=== PATIENT | female | born 1995 | race Hispanic/Latino ===

== ENCOUNTER 2020-01-01 13:29 | Emergency (ER) | payer OTHER, SELFPAY ==
--- NOTE | ~2020-01-01 | CT_ITS ---
EXAMINATION: CT abdomen pelvis w con DATE: 01/01/2020 14:35 INDICATION: Right lower quadrant abdominal pain. TECHNIQUE: Computed tomography (CT) of the abdomen and pelvis was performed with 100 mL Omnipaque 350 intravenous contrast. Automated exposure control and iterative reconstruction technique were employe d. The dose-length product was 200.45 mGy-cm. COMPARISON: None. FINDINGS: The visualized portions of the lung bases are clear without pneumonia or pleural effusion. The heart size is normal. No pericardial effusion. The liver, gallbladder, spleen, pancreas, adrenal glands, and kidneys are normal. There are no dilated loops of bowel. The appendix is normal. There ar e no pathologically enlarged lymph nodes. The ovarian veins are enlarged, consistent with pelvic veno us insufficiency. There is no free intraperitoneal fluid. There is lumbar levoscoliosis. IMPRESSION: 1. Pelvic venous insufficiency. Reviewed, dictated and finalized at location A.
[2020-01-01 13:58] LABS: Basophils Percent Auto 0.8 % (0.2-1.2); Eosinophils Absolute Auto 0.2 K/mm3 (0-0.3); Hematocrit 38.1 % (37.0-47.0); Hemoglobin 12.7 g/dL (12.0-15.0); Immature Granulocyte Absolute 0.01 K/mm3 (0.00-0.031); Immature Granulocyte Percent A 0.2 % (0-0.5); Lymphocytes Absolute Auto 1.74 K/mm3 (0.9-3.2); Lymphocytes Percent Auto 35.2 % (18.3-44.2); Mean Corpuscular HGB Conc 33.3 g/dl (32-36); Mean Corpuscular Hemoglobin 29.7 pg (26-34); Mean Platelet Volume 10.6 fl (7.4-10.4); Monocytes Absolute Auto 0.5 K/mm3 (0.1-0.6); Monocytes Percent Auto 9.1 % (2.6-8.5); Neutrophils Absolute Auto 2.6 K/mm3 (1.3-6.7); Neutrophils Percent Auto 51.7 % (45.5-73.1); Platelet Count Result 224 k/mm3 (150-375); Red Blood Count 4.28 M/mm3 (4.2-5.4)
[2020-01-01] MEDS: ONDANSETRON INJ 4 MG/2 ML VIAL IV PUSH (13:58)
[2020-01-01] MEDS: FAMOTIDINE 20 MG/2 ML VIAL IV PUSH (13:58)
[2020-01-01] MEDS: SODIUM CHLORIDE 0.9% IV 1,000 ML 999 ML IV CONT (13:59)
[2020-01-01 14:02] LABS: Add Urine Microscopic? NO; Appearance Urine Clear (Clear); Bacteria Urine Trace /hpf; Bilirubin Urine Negative (Negative); Blood Urine Negative (Negative); Color Urine Yellow (Yellow); Glucose Urine UA Negative (Negative); Ketones Urine Negative (Negative); Leukocyte Esterase Ur Negative LEU/UL (Negative); Mucus Urine Heavy /lpf; Nitrate Urine Negative (Negative); Protein Urine Negative (Negative); RBC Urine 0-2 /hpf (0-2); Specific Grav Ur 1.026 (1.001-1.035); Squamous Epithelial Cell Urine Many /hpf (Few); Urobilinogen Urine Negative mg/dL (<2.0); WBC Urine 0-3 /hpf
[2020-01-01 14:05] VITALS: BP 111/72; PULSE 62; RESP 14; TEMP 36.7; O2SAT 100
[2020-01-01 14:13] LABS: Alanine Aminotransferase 7 U/L (4-35); Albumin Level 4.6 g/dL (3.5-5.1); Alkaline Phosphatase 71 U/L (38-126); Aspartate Amino Transferase 18 U/L (14-36); Bilirubin,Total 0.6 mg/dL (0.2-1.3); Blood Urea Nitrogen 14 mg/dL (7-17); Calcium 9.2 mg/dL (8.4-10.2); Carbon Dioxide 28 mmol/L (22-30); Chloride 104 mmol/L (98-107); Estimated CRCL calculation 89 ml/min; Estimated Glomerular Filt Rate > 60; Glucose 106 mg/dL (65-105); Lipase 85 U/L (23-300); Potassium 4.2 mmol/L (3.4-5.0); Sodium 138 mmol/L (137-145)
--- NOTE | 2020-01-01 14:15 | ED.ABDPAIN ---
HPI - Abdominal Pain General Chief Complaint: Abdominal Pain <Demetrius Oro PA-C - Last Filed: 01/01/20 15:43> Stated Complaint: abdominal pain RLQ <JACQUELYN Johansen Last Filed: 01/01/20 15:43> Time Seen by Provider: 01/01/20 13:34 <Demetrius Oro PA-C - Last Filed: 01/01/20 15:43> Source: patient <Demetrius Oro PA-C - Last Filed: 01/01/20 15:43> Mode of arrival: ambulatory <Demetrius Oro PA-C - Last Filed: 01/01/20 15:43> Limitations: no limitations <Demetrius Oro PA-C - Last Filed: 01/01/20 15:43> History of Present Illness HPI narrative: Patient is a 24-year-old female who presents to emergency department for evaluation of right lower quadrant abdominal pain that began over the last day patient notes aching pain originating at the periumbilical region which she woke up with which has now localized to the right lower quadrant is a moderate aching pain worse with activity and movement. Patient has decreased appetite with nausea. I similar occurrence other illness or complaints presents in no distress and has not taken anything for symptoms <Demetrius Oro PA-C - Last Filed: 01/01/20 15:43> Related Data Allergies/Adverse Reactions: Allergies Allergy/AdvReac Type Severity Reaction Status Date / Time No Known Allergies Allergy Verified 08/23/15 10:09 <Demetrius Oro PA-C - Last Filed: 01/01/20 15:43> Review of Systems Review of Systems: All systems reviewed & are unremarkable except as noted in HPI and below <Demetrius Oro PA-C - Last Filed: 01/01/20 15:43> PMFSH Social History Social History: Social History (Updated 01/01/20 @ 14:40 by Demetrius Oro PA-C) Smoking status: Never smoker Gender identity (if verbalized by the patient): Female <Demetirus Oro PA-C - Last Filed: 01/01/20 15:43> Exam Narrative: Exam Narrative: GENERAL: Well-appearing, well-nourished, and in no acute distress. HEAD: Normocephalic, atraumatic. EYES: PERRLA and EOMI. ENT: Nares clear, no rhinorrhea or epistaxis. Mucous membranes moist. CHEST: Clear to auscultation. No respiratory distress. No wheezes rales or rhonchi HEART: Regular rate and rhythm. No murmur heard. Normal peripheral pulses. ABDOMEN: Soft, generalized tenderness with worsening in the right lower quadrant with voluntary guarding, nondistended, normal active bowel sounds. EXTREMITIES: Normal range of motion. No edema. SKIN: Warm, dry, no rash. NEURO: No focal deficits. Alert and oriented x3. Cranial nerves II through XII grossly intact PSYCH: Normal mood and affect. <Demetrius Oro PA-C - Last Filed: 01/01/20 15:43> Course Course Emergency Course: Patient in the room in no distress aware of case findings treatment plan and diagnosis agreeing to follow-up as directed provided with reasons to return <Demetrius Oro PA-C - Last Filed: 01/01/20 15:43> Vital Signs Vital signs: Vital Signs Temperature 98.1 F 01/01/20 14:05 Pulse Rate 62 01/01/20 14:05 Respiratory Rate 14 01/01/20 14:05 Blood Pressure 111/72 01/01/20 14:05 Pulse Oximetry 100 01/01/20 14:05 Temperature 98.1 F 01/01/20 14:05 Pulse Rate 58 L 01/01/20 15:17 Respiratory Rate 14 01/01/20 15:17 Blood Pressure 104/63 01/01/20 15:17 Pulse Oximetry 98 01/01/20 15:17 <Demetrius Oro PA-C - Last Filed: 01/01/20 15:43> Vital Signs Temperature 98.1 F 01/01/20 14:05 Pulse Rate 62 01/01/20 14:05 Respiratory Rate 14 01/01/20 14:05 Blood Pressure 111/72 01/01/20 14:05 Pulse Oximetry 100 01/01/20 14:05 Temperature 98.1 F 01/01/20 14:05 Pulse Rate 58 L 01/01/20 15:17 Respiratory Rate 14 01/01/20 15:17 Blood Pressure 104/63 01/01/20 15:17 Pulse Oximetry 98 01/01/20 15:17 <Marisela Rivas MD - Last Filed: 01/01/20 15:44> MDM - Abdominal Pain MDM Narrative Medical decision making narrative: Patient in the room
[2020-01-01 15:17] VITALS: BP 104/63; PULSE 58; RESP 14; O2SAT 98
[2020-01-01] MEDS: KETOROLAC 30 MG/ML VIAL (*BKC) IV PUSH (15:31)
== END 2020-01-01 15:59 | disposition home or self-care (01) ==
PROVIDERS: Emergency Medicine Emergency Medical Services; Emergency Provider Emergency Medicine
DX: R10.31 Right lower quadrant pain (principal); I87.2 Venous insufficiency (chronic) (peripheral)
CPT/HCPCS: 36415; 74177; 80053; 81003; 81025; 83690; 85025; 96361; 96365; 96375; 99284; J0131; J1885; J2405; J7030; Q9967

== ENCOUNTER → 2020-03-07 15:54 | Outpatient (CLI) | payer OTHER, SELFPAY ==
--- NOTE | ~2020-03-07 | XR_ITS ---
EXAMINATION: XR chest 2V DATE: 03/07/2020 16:33 INDICATION: Chest and back pain, COVID exposure TECHNIQUE: PA and lateral views of the chest are obtained. COMPARISON: None available FINDINGS: The lungs are free of acute opacities. There is no pleural effusion or pneumothorax. The ca rdiomediastinal silhouette is normal. The visualized bones and soft tissues are unremarkable. IMPRESSION: 1. No acute cardiopulmonary abnormality. Reviewed, dictated and finalized at location A.
== END ==
PROVIDERS: PCP Emergency Medicine; Visit Provider Emergency Medicine
DX: R07.9 Chest pain, unspecified (principal); M54.9 Dorsalgia, unspecified; Z20.828 Contact with and (suspected) exposure to other viral communicable diseases
CPT/HCPCS: 71046

== ENCOUNTER 2020-05-24 12:42 | Outpatient (NON) | payer OTHER, SELFPAY ==
[2020-05-25 01:31] LABS: SARS-CoV-2 RNA PCR Negative
== END 2020-05-24 12:43 ==
LOC: ANHCOVIDDT 12:43
PROVIDERS: PCP Emergency Medicine; Visit Provider Emergency Medicine
DX: Z20.828 Contact with and (suspected) exposure to other viral communicable diseases (principal); J02.9 Acute pharyngitis, unspecified
CPT/HCPCS: 87635; C9803; U0003

== ENCOUNTER → 2020-10-04 09:09 | Outpatient (CLI) | payer OTHER, SELFPAY ==
[2020-10-04 19:28] LABS: SARS-CoV-2 RNA PCR Negative
== END ==
PROVIDERS: PCP Emergency Medicine; Visit Provider Emergency Medicine
DX: Z20.822 Contact with and (suspected) exposure to COVID-19 (principal); J02.9 Acute pharyngitis, unspecified; H92.09 Otalgia, unspecified ear
CPT/HCPCS: C9803; U0003; U0005

== ENCOUNTER 2020-10-18 08:14 | Outpatient (CLI) | payer OTHER, SELFPAY ==
--- NOTE | ~2020-10-18 | US_ITS ---
US right upper quadrant INDICATION: Epigastric pain PROCEDURE: Realtime right upper abdominal ultrasound. COMPARISON: CT dated 01/01/2020 FINDINGS: The pancreas is normal without focal mass or pancreatic ductal dilation. Liver echotexture is normal without focal mass or intrahepatic biliary dilatation. There is normal directional flow i n the portal vein. The gallbladder is normal without stones, gallbladder wall thickening or pericholecystic fluid. Comm on bile duct measures 4 mm. No sonographic Teresa's sign. IMPRESSION: 1: Normal limited abdominal ultrasound. Reviewed, dictated and finalized at location B.
== END 2020-10-18 08:15 | disposition home or self-care (01) ==
PROVIDERS: PCP Emergency Medicine; Visit Provider Emergency Medicine
DX: R10.13 Epigastric pain (principal)
CPT/HCPCS: 76705

== ENCOUNTER 2021-01-29 12:04 | Emergency (ER) | payer OTHER, SELFPAY ==
--- NOTE | ~2021-01-29 | CT_ITS ---
EXAMINATION: CT abdomen pelvis w con EXAM DATE: 01/29/2021 13:52 INDICATION: Right lower quadrant pain, UTI. TECHNIQUE: Spiral CT of the abdomen and pelvis was performed following intravenous injection of 100 m L Omnipaque 350. Axial, coronal and sagittal images of the abdomen and pelvis were reviewed. The do se-length product (DLP) for this examination was 199.33 mGy-cm. The exposure was tailored according to patient size (auto mA exposure control), and iterative reconstruction (ASIR) was used as additiona l dose reduction technique. Comparison is made to prior examination from 01/01/2020. FINDINGS: The liver, spleen, adrenal glands and pancreas are unremarkable. Gallbladder is unremarkab le. No biliary obstruction. Portal and splenic veins are patent. Kidneys enhance symmetrically. T here is no hydronephrosis. The uterus is retroverted and morphologically normal. There is evidence of recently ruptured right ovarian physiologic follicle. Dilated bilateral ovarian veins, could indic ate pelvic congestion syndrome. The bladder is unremarkable. There is no retroperitoneal or pelvic lymphadenopathy. The appendix is normal. The stomach and small bowel are unremarkable. There is expected amount of c olonic stool. No free intraperitoneal gas. The heart is normal in size. There are no pericardial or pleural effusions. The lung bases are unremarkable. The bones are unremarkable. IMPRESSION: 1. Evidence of recently ruptured right ovarian follicle. 2. Dilated gonadal veins bilaterally, could indicate pelvic congestion syndrome. 3. Normal appendix. Reviewed, dictated and finalized at location A. IMPRESSION: 1. Evidence of recently ruptured right ovarian follicle. 2. Dilated gonadal veins bilaterally, could indicate pelvic congestion syndrom e. 3. Normal appendix.
--- NOTE | ~2021-01-29 | XR_ITS ---
XR chest 2V DATE: 01/29/2021 13:08 INDICATION: Midsternal to posterior chest pain and shortness breath for one day TECHNIQUE: PA and lateral views COMPARISON: 03/07/2020 2 view chest FINDINGS: Bilateral cervical ribs. Minimal dextroscoliosis of the thoracic spine. Normal heart size. No hilar or mediastinal enlargement. No pulmonary infiltrate or consolidation, pleural effusion or pulmonary vascular congestion or pneumo thorax. IMPRESSION: No active cardiac pulmonary disease Bilateral cervical ribs Reviewed, dictated and finalized at location B.
--- NOTE | 2021-01-29 12:07 | ECG_ITS ---
Measurements Intervals [place] Rate: 96 P: 74 MD: 138 QRS: 71 QRSD: 76 T: -11 QT: 312 QTc: 396 Interpretive Statements SINUS RHYTHM POSSIBLE LEFT ATRIAL ENLARGEMENT INCOMPLETE RIGHT BUNDLE BRANCH BLOCK BORDERLINE ST-T WAVE ABNORMALITY- ANT/INF LEADS BASELINE ARTIFACT- I, III, AVL BORDERLINE ECG Electronically Signed On 01-29-2021 12:52:45 CDT by Terrell Jacobs D.O.
[2021-01-29 12:39] VITALS: BP 111/76; PULSE 102; RESP 18; TEMP 36.9; O2SAT 100
[2021-01-29 12:45] VITALS: PULSE 95; RESP 16
[2021-01-29 13:05] LABS: Basophils Absolute Auto 0.1 K/mm3 (0.0-0.1); Basophils Percent Auto 0.3 % (0.2-1.2); Hematocrit 37.5 % (37.0-47.0); Hemoglobin 12.6 g/dL (12.0-15.0); Immature Granulocyte Absolute 0.13 K/mm3 (0.00-0.031); Immature Granulocyte Percent A 0.6 % (0-0.5); Lymphocytes Absolute Auto 0.86 K/mm3 (0.9-3.2); Lymphocytes Percent Auto 4.3 % (18.3-44.2); Mean Corpuscular HGB Conc 33.6 g/dl (32-36); Mean Corpuscular Hemoglobin 30.5 pg (26-34); Mean Corpuscular Volume 90.8 fl (80-100); Mean Platelet Volume 10.5 fl (7.4-10.4); Monocytes Absolute Auto 1.1 K/mm3 (0.1-0.6); Monocytes Percent Auto 5.3 % (2.6-8.5); Neutrophils Absolute Auto 18.1 K/mm3 (1.3-6.7); Neutrophils Percent Auto 89.5 % (45.5-73.1); Platelet Count Result 197 k/mm3 (150-375); Red Blood Count 4.13 M/mm3 (4.2-5.4); Red Cell Distribution Width 12.3 % (11.5-14.5); White Blood Count 20.2 K/mm3 (4.5-10.0)
[2021-01-29 13:15] VITALS: PULSE 80
[2021-01-29 13:19] LABS: Anion Gap 7 mmol/L (8-16); Blood Urea Nitrogen 14 mg/dL (7-17); Calcium 9.2 mg/dL (8.4-10.2); Carbon Dioxide 24 mmol/L (22-30); Chloride 106 mmol/L (98-107); Estimated CRCL calculation 91 ml/min; Estimated Glomerular Filt Rate > 60; Glucose 114 mg/dL (65-105); Sodium 137 mmol/L (137-145)
[2021-01-29 13:22] LABS: Add Urine Microscopic? YES; Appearance Urine Clear (Clear); Bacteria Urine Trace /hpf; Bilirubin Urine Negative (Negative); Blood Urine Negative (Negative); Color Urine Yellow (Yellow); Glucose Urine UA Negative (Negative); Ketones Urine Trace mg/dL (Negative); Leukocyte Esterase Ur Trace LEU/UL (Negative); Mucus Urine Heavy /lpf; Nitrate Urine Negative (Negative); Protein Urine Negative (Negative); RBC Urine 0-2 /hpf (0-2); Specific Grav Ur 1.027 (1.001-1.035); Squamous Epithelial Cell Urine Few /hpf (Few); Urobilinogen Urine Negative mg/dL (<2.0); WBC Urine 0-3 /hpf
[2021-01-29 13:31] LABS: Troponin I < 0.012 ng/mL (0.000-0.034)
[2021-01-29] MEDS: FAMOTIDINE 20 MG/2 ML VIAL IV PUSH (13:42)
[2021-01-29] MEDS: SODIUM CHLORIDE 0.9% IV 1,000 ML 999 ML IV CONT (13:42)
--- NOTE | 2021-01-29 13:50 | PC.NURSE ---
chemistry, lazara added hepatic, lip 13:50
[2021-01-29 13:58] LABS: Prothrombin Time 13.3 Seconds (11.1-14.7)
[2021-01-29 14:00] LABS: Partial Thromboplastin Time 27.4 SECONDS (22.3-36.8)
--- NOTE | 2021-01-29 14:31 | PC.NURSE ---
chemistry, mono lance hepatic, deandra 14:32
--- NOTE | 2021-01-29 14:49 | ED.GENADULT ---
HPI - General Adult General Chief complaint: Chest Pain Stated complaint: CP X1D CHILLS Time Seen by Provider: 01/29/21 13:03 Source: patient and RN notes reviewed Mode of arrival: ambulatory Limitations: no limitations History of Present Illness HPI narrative: Patient is a 25-year-old female who presents to emergency department for evaluation of not feeling well notes that today she went to primary care given that she began to not feel well noting that she was having some discomfort in the abdomen with cough fever chills body aches that began acutely today she notes that her kid currently has RSV and is sick at home patient denies any vomiting diarrhea patient was seen by primary care told she had a urinary tract infection but sent over due to the discomfort she is having in her chest and the coughing patient on arrival does not appear distressed she has not taken anything for symptoms. Patient notes that she is fully vaccinated against Covid Related Data Allergies Allergy/AdvReac Type Severity Reaction Status Date / Time No Known Allergies Allergy Verified 01/29/21 13:11 Review of Systems Review of Systems: All systems reviewed & are unremarkable except as noted in HPI and below PMFSH Social History Social History Smoking status: Never smoker Gender identity (if verbalized by the patient): Female Exam Narrative: Exam Narrative: GENERAL: Well-appearing, well-nourished, and in no acute distress. HEAD: Normocephalic, atraumatic. EYES: PERRLA and EOMI. ENT: Nares clear, no rhinorrhea or epistaxis. Mucous membranes moist. Oropharynx without tonsillar hypertrophy exudate or other lesions. Bilateral TMs pearly benito nonbulging NECK: Supple. No adenopathy or masses. CHEST: Clear to auscultation. No respiratory distress. No wheezes rales or rhonchi HEART: Regular rate and rhythm. No murmur heard. Normal peripheral pulses. ABDOMEN: Soft, periumbilical abdominal pain, nondistended. EXTREMITIES: Normal range of motion. No edema. SKIN: Warm, dry, no rash. NEURO: No focal deficits. Alert and oriented x3. Cranial nerves II through XII grossly intact PSYCH: Normal mood and affect. Course Course Emergency Course: Patient in the room in no distress aware of case findings treatment plan and diagnosis agreeing to follow-up as instructed with primary care for reevaluation patient without pneumonia no urinary tract infection had CAT scan without concerning findings patient will be discharged home with acute follow-up with primary care could be related to the viral infection her son has. Vital Signs Vital signs: Vital Signs Temperature 98.5 F 01/29/21 12:39 Pulse Rate 102 H 01/29/21 12:39 Respiratory Rate 18 01/29/21 12:39 Blood Pressure 111/76 01/29/21 12:39 Pulse Oximetry 100 01/29/21 12:39 Temperature 98.5 F 01/29/21 12:39 Pulse Rate 80 01/29/21 13:15 Respiratory Rate 16 01/29/21 12:45 Blood Pressure 111/76 01/29/21 12:39 Pulse Oximetry 100 01/29/21 12:39 Medical Decision Making MDM Narrative Medical decision making narrative: Patient presented with upper respiratory symptoms likely secondary to the same illness or child has will be sent home with outpatient follow-up with primary care for reevaluation and rechecking of her leukocytosis patient felt better after evaluation and interventions in the emergency department was checked for influenza strep will have Covid swab patient at this time is afebrile nontoxic-appearing and felt appropriate for outpatient reevaluation agrees with this treatment plan Vital Signs Vital Signs: Vital Signs Temperature 98.5 F 01/29/21 12:39 Pulse Rate 102 H 01/29/21 12:39 Respiratory Rate 18 01/29/21 12:39 Blood Pressure 111/76 01/29/21 12:39 Pulse Oximetry 100 01/29/21 12:39 Temperature 98.5 F 01/29/21 12:39 Pulse Rate 80 01/29/21 13:15 Respiratory Rate 16 01/29/21 12:45 Bloo
[2021-01-29 15:06] LABS: Alanine Aminotransferase 11 U/L (4-35); Albumin Level 4.4 g/dL (3.5-5.1); Alkaline Phosphatase 60 U/L (38-126); Aspartate Amino Transferase 22 U/L (14-36); Lipase 66 U/L (23-300)
[2021-01-29 15:41] LABS: Troponin I < 0.012 ng/mL (0.000-0.034)
[2021-01-29 15:54] VITALS: BP 93/59; PULSE 84; RESP 18; O2SAT 100
[2021-01-30 16:29] LABS: SARS-CoV-2 RNA PCR Negative
== END 2021-01-29 15:56 | disposition home or self-care (01) ==
PROVIDERS: Emergency Medicine Emergency Medical Services; Emergency Provider Emergency Medicine; PCP Emergency Medicine
DX: J06.9 Acute upper respiratory infection, unspecified (principal); D72.829 Elevated white blood cell count, unspecified; R10.9 Unspecified abdominal pain; Z20.822 Contact with and (suspected) exposure to COVID-19
CPT/HCPCS: 36415; 71046; 74177; 80048; 80076; 81001; 81025; 83690; 84484; 85025; 85610; 85730; 87081; 87804; 87880; 93005; 96365; 96375; 99284; C9803; J0131; J7030; Q9967; U0003; U0005

== ENCOUNTER 2021-03-31 10:16 | Outpatient (CLI) | payer OTHER, SELFPAY | END 2021-03-31 10:17 | disposition home or self-care (01) | PROVIDERS: PCP Emergency Medicine; Visit Provider Obstetrics & Gynecology | DX: Z01.818 Encounter for other preprocedural examination (principal); N92.1 Excessive and frequent menstruation with irregular cycle | CPT/HCPCS: 36415; 86850; 86900; 86901 ==

== ENCOUNTER 2021-04-04 02:44 | Day surgery (SDC) | payer OTHER, SELFPAY ==
--- NOTE | 2021-04-02 10:00 | PM.IMHP ---
H&P: HPI History of Present Illness Date/Time: 04/02/21 10:00 26-year-old 3 para 3 admitted for laparoscopy hysteroscopy dilatation curettage. She has had pain discomfort irregular bleeding. Ultrasound showed free fluid in the pelvis with a retroverted uterus. A she has had chronic pelvic pain dyspareunia she opts for laparoscopy/hysteroscopy/dilatation and curettage. Risks and benefits reviewed Chief Complaint: Irregular bleeding and pelvic pain Review of Systems Review of Systems: All systems reviewed & are unremarkable except as noted in HPI and below PMFSH Social History Social History Smoking status: Never smoker Gender identity (if verbalized by the patient): Female Spiritual care concerns: No Meds Home Medications and Allergies Home Medications Medication Instructions Recorded Confirmed Type No Home Medications 03/28/21 03/28/21 History Allergies Allergy/AdvReac Type Severity Reaction Status Date / Time No Known Allergies Allergy Verified 03/28/21 10:26 Exam Const: General: no acute distress Eyes: General: appearance normal, both eyes and all related structures Neck: Neck: supple and no JVD Thyroid: thyroid normal Resp: Effort & Inspection: normal respiratory effort Auscultation: clear to auscultation bilaterally Cardio: Rate: regular rate Rhythm: regular rhythm GI: Inspection: non-distended GI Palp: Yes Soft to palpation, No Tenderness to palpation present (GI) and No Guarding due to palpation present (GI) Auscultation: normal bowel sounds : External Female Exam: normal external appearance Speculum Exam - Vagina: normal appearance of the vagina Speculum Exam - Cervix: normal appearance of the cervix Bimanual exam- vagina & uterus: uterine size normal and fixed Bimanual Exam- Adnexa, other: tender Skin: General skin exam: no rashes or lesions noted Extrem: General: normal to inspection and no edema Psych: Mental Status: mental status grossly normal Affect: normal affect Assessment and Plan Additional Plan Impression: Pelvic pain and the bleeding refractory to medical therapy Plan: Laparoscopy/hysteroscopy/dilatation and curettage
[2021-04-04] VITALS (9 sets, daily range): BP systolic 106–134; BP diastolic 59–90; PULSE 49–80; RESP 14–18; TEMP 36.1–36.9; O2SAT 100
--- NOTE | 2021-04-04 07:02 | WPDHPUPDATE1 ---
History and Physical Update Update Date/Time: 04/04/21 07:02 History and Physical has been reviewed, including an updated exam of the patient. There are NO changes in the patient's condition. Risks, benefits, and alternatives have been discussed and questions answered. Patient agrees to proceed with procedure.
--- NOTE | 2021-04-04 12:14 | WPDANESEPPF ---
Anes - Initial Pre Proc Eval Procedure: Operation Date: 04/04/21 13:30 Proposed Procedures p Diagnostic Laparoscopy, Hysteroscopy, Dilatation and Curettage - Varun Braga MD Date/Time: 04/04/21 12:14 Surgeon: Varun Braga MD Pre Op Diagnosis: pelvic pain, irregular bleeding Patient Data Age: 26 Gender: F Height: 1.65 m Weight: 54.5 kg Allergies Allergy/AdvReac Type Severity Reaction Status Date / Time No Known Allergies Allergy Verified 04/04/21 12:02 Home Medications Medication Instructions Recorded Confirmed Type No Home Medications 03/28/21 04/04/21 History hydrocodone-acetaminophen 1 tablet PO Q4H PRN #20 tablet 04/04/21 Rx Patient hx anesthesia problems: none Family hx anesthesia problems: none PMFSH Past Medical History Medical History (Updated 04/04/21 @ 12:16 by Dariel Vasquez MD) Abnormal uterine bleeding Anxiety Depression Social History Social History Smoking status: Never smoker Living arrangements: with family Gender identity (if verbalized by the patient): Female Spiritual care concerns: No Anes - Eval Final PreProcedure Day of Procedure 04/04/21 12:14 Patient weight: normal Heart: regular rate and rhythm Lungs: clear to auscultation and normal air movement Airway: Mallampati scale class II Neurological: alert and oriented Last oral intake: >/= 8 hours ASA classification: II Emergent: no Anesthetic plan: proceed Anesthesia type and monitoring: general ETT Informed Consent: The patient's anesthetic plan and its attendant risks and benefits were discussed with the patient/family/POA. Questions were solicited and answers provided to the satisfaction of the patient/family/POA.
[2021-04-04] MEDS: LACTATED RINGERS 1,000 ML 30 ML IV CONT ×2 (12:50→14:18)
[2021-04-04] MEDS: ACETAMINOPHEN 500 MG TABLET 1000 MG PO (13:00)
[2021-04-04] MEDS: KETOROLAC 15 MG/ML VIAL (*BKC) IV PUSH (13:01)
--- NOTE | 2021-04-04 14:12 | P.OP_ITS ---
Procedure Note - Detailed Date of Procedure 04/04/21 Pre-op Diagnosis pelvic pain, irregular bleeding Post-op Diagnosis other (endometriosis) Procedure Performed Laparoscopy with destruction of endometriosis/hysteroscopy / dilatation cure ttage Surgeon Varun Braga MD Anesthesia general Indications is the patient with history of pelvic pain irregular blood Findings small area of endometriosis along right uterosacral left uterosacral ligament normal-appearing ovaries and tubes Description of Procedure patient was prepped and draped in the normal sterile fashion placed in dorsal lithotomy position under excellent general trach anesthesia weighted speculum placed posterior fornix vagina. Anterior lip of cervix grasped with single- tooth tenaculum the uterine cannula was inserted to the cervix and attached a single-tooth for later in manipulation. The bladder drained of clear urine in the weighted speculum removed. Gloves were changed The infraumbilical incision made the Veress needle passed in the abdomen. The abdomen filled with CO2 gas [id number]. 5Mm trocar advanced under direct visualization into the abdomen and no injury seen. Patient placed in Trendelenburg and a suprapubic incision made. The 5mm trocar advanced under direct visualization assuring no injury. Some old blood was seen in the pelvis and this was irrigated. Areas of endometriosis on the right left uterosacral ligament were seen and these were cauterized at 35 w per 2nd with monopolar cautery. The appendix gallbladder and liver edge all appeared within normal limits. No other abnormalities were seen and the gas removed from the abdomen. The trocars sites removed and the incisions closed with 4 Monocryl. Attention was turned to the hysteroscopy the uterus sounded to 7cm. Serial dilatation with fragmented dilators performed followed by passage of the 5mm visualizing hysteroscope using normal saline as visualizing medium. Thick irregular endometrial tissue was seen but no evidence of polyp or other abnormalities. Uterus was then scraped over the entire 360? until good grating sound was heard. When no further tissue movements was removed and all accounted for. Patient was awakened and went to recovery in satisfactory condition. All sponge, needle, instrument counts were correct. There were no immediate complications Estimated Blood Loss 5 Drains No Packing No Pathology yes Complications No immediate complications Condition stable Disposition PACU
[2021-04-04] MEDS: fentaNYL CITRATE INJ (*CRX) 100 MCG/2 ML VIAL 25 MCG IV PUSH ×4 (14:39→14:54)
[2021-04-04] MEDS: oxyCODONE HCL (*CRX) 5 MG TAB IR PO (15:24)
== END 2021-04-04 16:10 | disposition home or self-care (01) ==
PROVIDERS: PCP Emergency Medicine; Visit Provider Obstetrics & Gynecology
PROC: 0UDB8ZZ Extraction of Endometrium, Via Natural or Artificial Opening Endoscopic (ICD-10-PCS; CPT 58558; principal; 2021-04-04 13:30)
PROC: 0U5B8ZZ Destruction of Endometrium, Via Natural or Artificial Opening Endoscopic (ICD-10-PCS; CPT 58563; 2021-04-04 13:30)
DX: R10.2 Pelvic and perineal pain (principal); N93.9 Abnormal uterine and vaginal bleeding, unspecified; N80.3 Endometriosis of pelvic peritoneum; F41.8 Other specified anxiety disorders
CPT/HCPCS: 58558; 58662; 88305; A9270; J0330; J1100; J1885; J2250; J2704; J3010; J7030; J7120

== ENCOUNTER 2021-07-04 18:36 | Emergency (ER) | payer OTHER, SELFPAY ==
--- NOTE | 2021-07-04 18:41 | ED.URI ---
HPI - URI/Sore Throat General Chief Complaint: Upper Respiratory Infection Stated Complaint: Congestion Time Seen by Provider: 07/04/21 18:41 Source: patient and family Mode of arrival: ambulatory Limitations: no limitations History of Present Illness HPI Narrative: Raisa is a 26-year-old female patient ambulated into the [facility]. Patient states she has congestion, loss of smell, body aches ,and fever starting on Wednesday. Patient had a Covid test on Wednesday and has not got the results back. patient states she drank Coke on the way here and realized that she could not taste. Patient states she has fever on and off. OTC medications --herbal teas and OTC body Pain medications. MD elicited complaint: fever Related Data Home Medications Medication Instructions Recorded Confirmed No Home Medications 03/28/21 04/04/21 Allergies Allergy/AdvReac Type Severity Reaction Status Date / Time No Known Allergies Allergy Verified 04/04/21 12:02 Review of Systems Review of Systems: CONSTITUTIONAL: + body aches,+ fever, chills, or sweats. EYES: Denies visual changes, redness, or discharge. ENT: Denies rhinorrhea,+congestion, sore throat, or otalgia. CARDIOVASCULAR: Denies chest pain, palpitations, or edema. RESPIRATORY: + cough denies dyspnea. GASTROINTESTINAL: Denies abdominal pain, nausea, vomiting, or diarrhea. GENITOURINARY: Denies dysuria or hematuria. SKIN: Denies rash, itching, or wounds. MUSCULOSKELETAL: Denies back pain, joint pain, or myalgia. NEUROLOGIC: Denies headache, numbness, tingling, or weakness. PSYCH: Denies depression or anxiety. All systems reviewed & are unremarkable except as noted in HPI and below PMFSH Past Medical History Medical History Abnormal uterine bleeding Anxiety Depression Social History Social History Smoking status: Never smoker Gender identity (if verbalized by the patient): Female Spiritual care concerns: No Exam Narrative: GENERAL: Well-appearing, well-nourished, and in no acute distress. HEAD: Normocephalic, atraumatic. EYES: EOMI. No redness or drainage. Conjunctivae normal. ENT: Mucous membranes pink and moist. Nasal membranes are erythematous with clear rhinorrhea. Bilateral tympanic membranes are dull with moderate amount of fluid no erythema. Posterior pharynx is erythemic with moderate edema no exudate. Uvula midline. NECK: Normal AROM. Supple. Bilateral anterior cervical lymphadenopathy. CHEST: No respiratory distress. Clear to auscultation. HEART: Regular rate and rhythm. No murmur appreciated. Normal peripheral pulses. MUSCULOSKELETAL: No bony tenderness. EXTREMITIES: Normal range of motion. No edema. SKIN: Warm, dry, no rash. Capillary refill normal. Normal skin turgor. NEURO: No focal deficits. Alert and oriented x3. Gait steady. PSYCH: Normal affect. No signs of depression or anxiety. Course Vital Signs Vital signs: Reviewed MDM - URI/Sore Throat MDM Narrative Medical decision making narrative: Influenza A/B negative. Rapid Covid 19 test is negative. Patient has pending pcr test from Wednesday. Patient will be diagnosed with viral upper respiratory infection. OTC cold medications for symptoms. F/U with PCP in 3-5 days, sooner for worsening of symptoms. Differential Diagnosis Differential diagnosis: Likely upper respiratory infection, sinusitis, viral infection and influenza Medical Records Attestation: I reviewed the patient's medical records. Lab Data Attestation: I reviewed the patient's lab results. Critical Care Time Critical Care Time Critical Care Time: No Discharge Plan Discharge Clinical Impression: Upper respiratory infection Patient Disposition: Home, Self-Care Condition: Stable Instructions: Antibiotic Form, Upper Respiratory Infection (ED) Additional Instructions: May use [id number]
[2021-07-04 18:44] VITALS: BP 100/43; PULSE 68; RESP 16; TEMP 37.6; O2SAT 100
== END 2021-07-04 19:09 | disposition home or self-care (01) ==
PROVIDERS: Emergency Provider Nurse Practitioner Family; PCP Emergency Medicine
DX: J06.9 Acute upper respiratory infection, unspecified (principal); Z20.822 Contact with and (suspected) exposure to COVID-19
CPT/HCPCS: 87426; 87804; 99213; C9803; G0463

== ENCOUNTER 2021-09-26 10:35 | Emergency (ER) | payer OTHER, SELFPAY ==
[2021-09-26 10:43] VITALS: BP 100/67; PULSE 80; RESP 16; TEMP 36.9; O2SAT 100
--- NOTE | 2021-09-26 11:01 | ED.FEMALEGU ---
HPI - Female Genitourinary General Chief complaint: Urogenital-Female Stated complaint: UTI Time Seen by Provider: 09/26/21 11:01 Source: patient Mode of arrival: ambulatory Limitations: no limitations History of Present Illness HPI Narrative: Raisa Ceballos is a 26 yo female with PMH of endometriosis who comes to [facility] with dysuria and burning with urination that started this morning. She did take Azo before coming here. She states she has some lower suprapubic discomfort that is typical of endometriosis and she is already made an appointment with her WATER TANKER DRIVER on Wednesday Related Data Allergies Allergy/AdvReac Type Severity Reaction Status Date / Time No Known Allergies Allergy Verified 04/04/21 12:02 Review of Systems Review of Systems: CONSTITUTIONAL: Denies fever, chills, sweats. EYES: Denies visual changes, redness, discharge. ENT: Denies rhinorrhea, congestion, sore throat, otalgia. CARDIOVASCULAR: Denies chest pain, palpitations, edema. RESPIRATORY: Denies dyspnea, wheezing, cough GASTROINTESTINAL: Denies abdominal pain, nausea, vomiting, diarrhea. GENITOURINARY: has dysuria, hematuria, abnormal discharge SKIN: Denies rash or itching. NEUROLOGIC: Denies numbness, or focal weakness. PSYCHIATRIC: Denies anxiety or depression. Tylenol vaginal no foot would get through her system PMFSH Past Medical History Medical History Abnormal uterine bleeding Anxiety Depression Endometriosis Social History Social History Smoking status: Never smoker Gender identity (if verbalized by the patient): Female Spiritual care concerns: No Comments At time of signature, I agree with nursing past medical, surgical, social and family history. There is no relevant family history pertinent to the presenting complaint. Exam Narrative: GENERAL: This is a well-nourished, well-developed patient, in mild distress. HEAD: normocephalic, atraumatic. EYES: Sclera clear/white. Vision is grossly intact. EARS: External ears normal. Hearing grossly intact. NOSE: External nose normal without nasal discharge, nares without redness, no rhinorrhea. THROAT: Mucous membranes moist, NECK: Neck supple, CARDIOVASCULAR: Regular rate and rhythm without murmurs, gallops, or rubs. RESPIRATORY: Clear to auscultation. Breath sounds equal bilaterally. No wheezes, rales, or rhonchi. GASTROINTESTINAL: Abdomen soft, mild suprapubic tenderness SKIN: warm, intact with no suspicious lesions or rash, good texture and turgor. NEURO: awake, alert, and oriented to person, place and time. There were no obvious focal neurologic abnormalities. Steady gait EXTREMITIES: Normal range of motion. BACK: Nontender without deformity Course Course Emergency Course: Patient comes to the dysuria and burning on urination that started this morning, she took Azo just before arrival UA shows 3+ blood and 1+ leukocytes Started on cephalexin 500 mg 1 twice daily x5 days, has appoint with DRY TRANSFER MAN on Wednesday to reevaluate possible recurrence of endometriosis Level of Care: Express Care Visit Vital Signs Vital signs: Vital Signs Temperature 98.5 F 09/26/21 10:43 Pulse Rate 80 09/26/21 10:43 Respiratory Rate 16 09/26/21 10:43 Blood Pressure 100/67 09/26/21 10:43 Pulse Oximetry 100 09/26/21 10:43 Temperature 98.5 F 09/26/21 10:43 Pulse Rate 80 09/26/21 10:43 Respiratory Rate 16 09/26/21 10:43 Blood Pressure 100/67 09/26/21 10:43 Pulse Oximetry 100 09/26/21 10:43 MDM - Female Genitourinary Differential Diagnosis Differential diagnosis: Likely urinary tract infection, ovarian cyst, cystitis and other Lab Data Labs: Urine Glucose Negative Reference Range: Negative Urine Bilirubin Negative Reference Ra
== END 2021-09-26 11:11 | disposition home or self-care (01) ==
PROVIDERS: Emergency Provider Nurse Practitioner
DX: N30.01 Acute cystitis with hematuria (principal); N80.9 Endometriosis, unspecified
CPT/HCPCS: 81003; 87077; 87086; 87186; 99213; G0463

== ENCOUNTER 2021-10-21 14:29 | Outpatient (CLI) | payer OTHER, SELFPAY ==
[2021-10-21 15:15] LABS: Hematocrit 36.4 % (37.0-47.0); Hemoglobin 12.1 g/dL (12.0-15.0)
== END 2021-10-21 14:30 | disposition home or self-care (01) ==
LOC: ANHSURGERY 14:32
PROVIDERS: Visit Provider Obstetrics & Gynecology
DX: Z01.818 Encounter for other preprocedural examination (principal); N93.9 Abnormal uterine and vaginal bleeding, unspecified
CPT/HCPCS: 36415; 85014; 85018; 86850; 86900; 86901

== ENCOUNTER 2021-10-24 01:20 | Day surgery (SDC) | payer OTHER, SELFPAY ==
--- NOTE | 2021-10-15 12:59 | SUR.PREOP ---
Report to the Outpatient Waiting Room, entrance under the green pavilion located off [facility], at time 0630 on date 10/24/21. OR Time: 0830. - You and your visitor will be asked a series of questions to screen for COVID 19 for your protection. - A mask is required within the hospital. Preoperative COVID Testing Requirements: No COVID Test needed if: (proof is required; if not received patient will have Rapid Test prior to entry) - Patient has received COVID Vaccine at least 14 days prior to procedure date or - Patient has positive COVID test result within last 90 days of surgery date. COVID Test needed if above criteria is not met If not COVID vaccinated a COVID test must be conducted within 72 hours of surgery and patient is asked to isolate self from time of testing until procedure. You will go to the [facility] for your COVID testing. The [facility] site is located at the corner of [address] [facility]. You will only be called if COVID results are positive and your surgeon may reschedule your elective surgery date. Patients may have clear liquids (water, carbonated beverages, clear teas, apple juice) until 3 hours prior to surgery with a maximum of 20 ounces. - No food from midnight until time of surgery - NO CLEAR LIQUIDS AFTER 0530 - Infants may have breast milk until 4 hours before surgery, formula 6 hours prior to surgery. - Children will be allowed to drink immediately following surgery. If applicable, please bring a bottle or sippy cup to assist with drinking. Juice, water, soda, and popsicles are readily available. For infants on formula, please bring formula the day of surgery. Pacifiers are allowed. Please no make-up, nail telugu, hairspray, perfume, deodorant, or body powder the day of surgery. No jewelry (including any body piercings) or valuables the day of surgery, leave them at home. Please take a shower or bath the night before, or the morning of, surgery with an antibacterial soap. Wear comfortable, loose fitting clothing. Children are encouraged to wear pajamas. - Jewelry must be removed prior to entering the operating room. Rings and piercings that are not removed may be cut off. - The hospital will not accept responsibility for valuables. - Please leave all valuables, including medications, at home the day of surgery. If you are going home after surgery, a licensed driver/sales workers must drive you home. - NO public transportation without another adult. - We recommend that an adult stay with you for 24 hours following discharge. - We also recommend that you do not drive, make important decision, drink alcoholic beverages, or take any drugs that were not prescribed by your health care provider for at least 24 hours after your discharge time. For Pediatric surgeries, we recommend two adults accompany the child home (only one inside the building at this time). One visitor will be allowed to accompany the patient into the hospital. Patients visitor will be instructed to remain with patient at all times or leave the building. We will allow the visitor to come back to the postoperative area when patient is ready. Follow any additional instructions given to you from your surgeon. Telephone instructions given to IWONA SCHMITT and asked if any additional questions and then verbalized understanding. Patient advised to call surgeon office or pre surgery nurse liaison [phone] if any additional questions.
--- NOTE | 2021-10-23 07:50 | PM.IMHP ---
H&P: HPI History of Present Illness Date/Time: 10/23/21 07:50 26-year-old 3 para 3 admitted for diagnostic laparoscopy and hysteroscopy as well as dilatation curettage secondary to pelvic pain/bleeding refractory to medical therapy. She underwent ultrasound which showed some large veins in the ovarian area. As thickened endometrium with some blood flow. Risks and benefits of this procedure reviewed including but not exclusive of , aspiration pneumonia, bleeding, transfusion, perforation under to bowel, bladder, ureters, or other internal organs with need for laparotomy. She received the ACOG handout entitled laparoscopy, hysteroscopy, dilatation curettage respectively. She had all questions answered and asked to proceed Chief Complaint: Pelvic pain and bleeding refractory to medical therapy Review of Systems Review of Systems: All systems reviewed & are unremarkable except as noted in HPI and below PMFSH Past Medical History Medical History Abnormal uterine bleeding Anxiety Depression Endometriosis Social History Social History Smoking status: Never smoker Gender identity (if verbalized by the patient): Female Spiritual care concerns: No Meds Home Medications and Allergies Home Medications Medication Instructions Recorded Confirmed Type No Home Medications 10/15/21 10/15/21 History Allergies Allergy/AdvReac Type Severity Reaction Status Date / Time No Known Allergies Allergy Verified 10/15/21 13:08 Exam Const: General: no acute distress Eyes: General: appearance normal, both eyes and all related structures Neck: Neck: supple and no JVD Thyroid: thyroid normal Resp: Effort & Inspection: normal respiratory effort Auscultation: clear to auscultation bilaterally Cardio: Rate: regular rate Rhythm: regular rhythm GI: Inspection: non-distended GI Palp: Yes Soft to palpation, No Tenderness to palpation present (GI) and No Guarding due to palpation present (GI) Auscultation: normal bowel sounds : External Female Exam: normal external appearance Speculum Exam - Vagina: normal appearance of the vagina Speculum Exam - Cervix: normal appearance of the cervix Bimanual exam- vagina & uterus: uterine shape normal, Cervical tenderness present and enlarged Bimanual Exam- Adnexa, other: tender Skin: General skin exam: no rashes or lesions noted Extrem: General: normal to inspection and no edema Psych: Mental Status: mental status grossly normal Affect: normal affect Assessment and Plan Additional Plan Impression: Pelvic pain and bleeding Plan laparoscopy/hysteroscopy/dilatation and curettage
[2021-10-24] VITALS (9 sets, daily range): BP systolic 91–118; BP diastolic 52–81; PULSE 53–75; RESP 11–16; TEMP 36.6–36.7; O2SAT 97–100
--- NOTE | 2021-10-24 07:18 | WPDHPUPDATE1 ---
History and Physical Update Update Date/Time: 10/24/21 07:18 History and Physical has been reviewed, including an updated exam of the patient. There are NO changes in the patient's condition. Risks, benefits, and alternatives have been discussed and questions answered. Patient agrees to proceed with procedure.
[2021-10-24] MEDS: LACTATED RINGERS 1,000 ML 30 ML IV CONT ×2 (07:31→09:25)
[2021-10-24] MEDS: ACETAMINOPHEN 500 MG TABLET 1000 MG PO (07:32)
[2021-10-24] MEDS: KETOROLAC 15 MG/ML VIAL (*BKC) IV PUSH (07:33)
--- NOTE | 2021-10-24 08:04 | P.PNAN_ITS ---
Anes - Initial Pre Proc Eval Procedure: Operation Date: 10/24/21 08:30 Proposed Procedures p Diagnostic Laparoscopy, Hysteroscopy, Dilation and Curettage - Varun Miranda MD Date/Time: 10/24/21 08:04 Surgeon: Varun Miranda MD Pre Op Diagnosis: Irrg Bleeding, Pain Patient Data Age: 26 Gender: F Height: 1.65 m Weight: 54.5 kg Last Vital Signs Temp 36.7 C 10/24/21 07:35 Pulse 67 10/24/21 07:35 Resp 16 10/24/21 07:35 BP 105/60 10/24/21 07:35 Pulse Ox 100 10/24/21 07:35 Allergies Allergy/AdvReac Type Severity Reaction Status Date / Time No Known Allergies Allergy Verified 10/24/21 07:11 Home Medications Medication Instructions Recorded Confirmed Type hydrocodone-acetaminophen 1 tablet PO Q4H PRN #30 tablet 10/24/21 Rx Patient hx anesthesia problems: none Family hx anesthesia problems: none Results Review: All pre-operative results and documents have been reviewed as part of the pre-operative evaluation. [facility] Past Medical History Medical History Abnormal uterine bleeding Anxiety Depression Endometriosis Social History Social History Smoking status: Never smoker Gender identity (if verbalized by the patient): Female Spiritual care concerns: No Anes - Eval Final PreProcedure Day of Procedure 10/24/21 08:04 Patient weight: normal Heart: regular rate and rhythm Lungs: clear to auscultation Airway: Mallampati scale class II Neurological: alert and oriented Last oral intake: >/= 8 hours ASA classification: II Emergent: no Anesthetic plan: proceed Anesthesia type and monitoring: general ETT and standard monitoring Results Review: All pre-operative results and documents have been reviewed as part of the pre-operative evaluation. Informed Consent: The patient's anesthetic plan and its attendant risks and benefits were discussed with the patient/family/POA. Questions were solicited and answers provided to the satisfaction of the patient/family/POA.
--- NOTE | 2021-10-24 09:07 | SUR.OPER ---
Cul De Sac fluid for culture given to Leopoldo MCNEILL, Received by Eula in lab at 0907.
--- NOTE | 2021-10-24 09:16 | P.OP_ITS ---
Procedure Note - Detailed Date of Procedure 10/24/21 Pre-op Diagnosis Irrg Bleeding, Pain Post-op Diagnosis Other (l ovarian cyst) Procedure Performed laparoscopy / destruction of left ovarian cyst /removal of cul-de-sac fluid /hysteroscopy/ dilatation and curettage Surgeon Varun Miranda MD Anesthesia General Indications [age]-year-old 3 para 3 admitted for laparoscopy and hysteroscopy secondary to pelvic pain and bleeding Findings on laparoscopy floppy uterus was seen. There is about 20cc of serosanguineous fluid in the cul-de-sac. Left ovarian cyst that was benign and simple in nature. On hysteroscopy the uterus sounded to 9cm. Benign-appearing endometrium was seen Description of Procedure the patient was prepped draped normal sterile fashion placed in dorsal lithotomy position. Under excellent general trach anesthesia weighted speculum placed posterior fornix vagina anterior lip of the cervix grasped with single- tooth uterus sounded 9.5cm. Serial dilatation with fragmented dilators performed followed passes the 5mm visualizing hysteroscope using normal saline as visualizing medium. Normal-appearing tubes were seen bilaterally. No definitive abnormalities uterus was then scraped over the entire 360? until a good grating sound was heard. The instruments removed and the gloves were changed. An infraumbilical incision made the Veress needle passed in the abdomen. Abdomen filled with CO2 gas [id number]. The 5mm trocar advanced under direct visualization assuring no injury. Rest patient placed in Trendelenburg and a suprapubic incision made. The 5mm trocar advanced under direct visualization assuring no injury. The above findings were seen. The serosanguineous fluid in the cul-de-sac were suction and removed. The left ovarian cyst was seen and this was opened in linear fashion draining of some small clear fluid irrigation the was then taken until clear. No other abnormalities were seen in photo documentation was undertaken. The the gas were removed from the abdomen at the a trocars removed. The incisions closed with 4 Monocryl and glue. All sponge, needle, instrument counts were correct. There were no immediate complications Estimated Blood Loss 5 Drains No Packing No Pathology Other ( cul-de-sac fluid sent for culture) Complications No immediate complications Condition Stable Disposition PACU
--- NOTE | 2021-10-24 10:09 | SUR.PHASEI ---
[facility]
[2021-10-24] MEDS: oxyCODONE HCL (*CRX) 5 MG TAB IR PO (11:08)
== END 2021-10-24 11:50 | disposition home or self-care (01) ==
PROVIDERS: Visit Provider Obstetrics & Gynecology
PROC: 0UDB8ZZ Extraction of Endometrium, Via Natural or Artificial Opening Endoscopic (ICD-10-PCS; CPT 58558; principal; 2021-10-24 08:30)
DX: N93.9 Abnormal uterine and vaginal bleeding, unspecified (principal); N83.202 Unspecified ovarian cyst, left side; R10.2 Pelvic and perineal pain
CPT/HCPCS: 58662; 58558; 87070; 87075; 87205; 88305; A9270; J1100; J1885; J2001; J2250; J2405; J2704; J2710; J3010; J7030; J7120

== ENCOUNTER 2022-07-29 10:53 | Outpatient (CLI) | payer OTHER, SELFPAY ==
--- NOTE | ~2022-07-29 | US_ITS ---
US breast LT limited DATE: 07/29/2022 11:19 INDICATION: Left breast lump, discharge. Inverted nipple. TECHNIQUE: Real-time and color flow imaging of left breast subareolar area COMPARISON: None FINDINGS: There is inverted prominent left nipple, with some surrounding vascularity which may repres ent inflammation. No suspicious mass or shadowing is evident. IMPRESSION: Inverted nipple with adjacent increased vascularity, which might indicate some inflammati on Reviewed, dictated and finalized at [facility]. Reviewed, dictated and finalized at [facility]. CONSULTANT IMPRESSION: Inverted nipple with adjacent increased vascularity, which might in dicate some inflammation
== END 2022-07-29 10:54 | disposition home or self-care (01) ==
LOC: ANHIMG 11:01
PROVIDERS: Visit Provider Obstetrics & Gynecology
DX: N64.59 Other signs and symptoms in breast (principal)
CPT/HCPCS: 76642

== ENCOUNTER 2022-09-09 13:20 | Emergency (ER) | payer OTHER, SELFPAY ==
[2022-09-09 13:29] VITALS: BP 108/67; PULSE 87; RESP 14; TEMP 36.6; O2SAT 100
--- NOTE | 2022-09-09 14:00 | ED.NAVMDI ---
HPI - Nausea/Vomiting/Diarrhea General Chief complaint: Nausea/Vomiting/Diarrhea Stated complaint: flu like sx Time Seen by Provider: 09/09/22 14:01 Source: patient and RN notes reviewed Mode of arrival: ambulatory Limitations: no limitations History of Present Illness HPI Narrative: 27-year-old female presented for complaint of diarrhea for about 4 days. She endorses at the onset she had nausea vomiting which has subsided. She apparently endorses abdominal cramping without pain, but states the growling sound wakes her at night. States symptoms are slowly improving. Patient has had about 3 liquid stools today. Endorses a decreased appetite. She denies hematochezia or hematemesis, fevers or chills. She has not taking anything for symptoms. She denies sick contacts, denies recent antibiotic use. Related Data Allergies Allergy/AdvReac Type Severity Reaction Status Date / Time No Known Allergies Allergy Verified 09/09/22 13:27 Review of Systems Review of Systems: per HPI All systems reviewed & are unremarkable except as noted in HPI and below PMFSH Past Medical History Medical History Abnormal uterine bleeding Anxiety Depression Endometriosis Social History Social History Smoking status: Never smoker Living arrangements: with family Gender identity (if verbalized by the patient): Female Spiritual care concerns: No Comments At time of signature, I have reviewed and agree with nursing past medical, surgical, social and family history unless otherwise noted. Please see nursing chart for further information. There is no relevant family history pertinent to the presenting complaint Exam Narrative: GENERAL: mildly ill-appearing, and in no acute distress. ENT: Mucous membranes pink and moist. CHEST: No respiratory distress. Clear to auscultation. HEART: Regular rate and rhythm. No murmur appreciated. Normal peripheral pulses. ABDOMEN: abd soft, flat/nondistended, hyperactive active bowel sounds. tender lower abdomen; No guarding, rebound tenderness, asymmetry EXTREMITIES: Normal range of motion. No edema. SKIN: Warm, dry, no rash. Capillary refill normal. Normal skin turgor. PSYCH: Normal affect. Course Course Emergency Course: Patient is aware of diagnosis, understands and agrees to treatment plan. Anticipatory guidance given. Patient agrees to follow-up as directed and is aware of reasons to seek care at the emergency department. Portions of this record may have been created with voice recognition software Level of Care: Express Care Visit Vital Signs Vital signs: Vital Signs Temperature 98 F 09/09/22 13:29 Pulse Rate 87 09/09/22 13:29 Respiratory Rate 14 09/09/22 13:29 Blood Pressure 108/67 09/09/22 13:29 Pulse Oximetry 100 09/09/22 13:29 Oxygen Delivery Room Air 09/09/22 13:29 Temperature 98 F 09/09/22 13:29 Pulse Rate 87 09/09/22 13:29 Respiratory Rate 14 09/09/22 13:29 Blood Pressure 108/67 09/09/22 13:29 Pulse Oximetry 100 09/09/22 13:29 Oxygen Delivery Room Air 09/09/22 13:29 MDM - Nausea/Vomiting/Diarrhea MDM Narrative Medical decision making narrative: Advised supportive measures and signs/symptoms to go to the ER. Pt is appropriate for outpt treatment and f/u. Differential Diagnosis Differential diagnosis: Likely food poisoning, gastroenteritis, dehydration and other ( Viral infection, colitis, diverticulitis) Discharge Plan Discharge Clinical Impression: Nausea, vomiting and diarrhea Patient Disposition: Home, Self-Care Condition: Stable Additional Instructions: Stay hydrated. Take small sips of fluid containing electrolytes frequently. Clear liquids (broth, jello, tea, sprite, pedialyte) Anderson foods (bananas, rice, applesauce, toast, crackers) Avoid fatty, greasy, fried or spicy foods. Limit d
== END 2022-09-09 14:25 | disposition home or self-care (01) ==
PROVIDERS: Emergency Provider Nurse Practitioner Family
DX: R11.2 Nausea with vomiting, unspecified (principal); R19.7 Diarrhea, unspecified; N80.9 Endometriosis, unspecified
CPT/HCPCS: 99213; G0463

== ENCOUNTER 2022-10-02 18:32 | Emergency (ER) | payer OTHER, SELFPAY ==
--- NOTE | 2022-10-02 18:39 | ED.FEMALEGU ---
HPI - Female Genitourinary General Chief complaint: Urogenital-Female Stated complaint: uti Time Seen by Provider: 10/02/22 18:48 Source: patient and RN notes reviewed Mode of arrival: ambulatory Limitations: no limitations History of Present Illness HPI Narrative: 27-year-old female presents concern for vaginal burning and white vaginal discharge. She reports she took azo okay she had a urinary tract infection without improvement. She denies concern for STDs. She denies fever, aches, chills, sweats, back pain, abdominal pain. She denies frequency, urgency MD elicited complaint: genital itching Related Data Allergies Allergy/AdvReac Type Severity Reaction Status Date / Time No Known Allergies Allergy Verified 10/02/22 18:51 Review of Systems Review of Systems: CONSTITUTIONAL: Denies malaise, chills, sweats, or fever. CARDIOVASCULAR: Denies chest pain, palpitations, or edema. RESPIRATORY: Denies cough or dyspnea. GASTROINTESTINAL: Denies abdominal pain, nausea, vomiting, diarrhea GENITOURINARY: Reports dysuria, vaginal burning, white vaginal discharge. Denies frequency, urgency, suprapubic pressure. Denies flank pain or hematuria. SKIN: Denies rash or itching. MUSCULOSKELETAL: Denies back pain or myalgia. All systems reviewed & are unremarkable except as noted in HPI and below PMFSH Past Medical History Medical History Abnormal uterine bleeding Anxiety Depression Endometriosis Social History Social History Smoking status: Never smoker Living arrangements: with family Gender identity (if verbalized by the patient): Female Spiritual care concerns: No Comments At time of signature, agree with nursing past medical, surgical, social and family history. There is no relevant family history pertinent to the presenting complaint Exam Narrative: GENERAL: Well-appearing, well-nourished, and in no acute distress. HEAD: Normocephalic. EYES: PERRLA, conjunctivae clear. NECK: Supple. No lymphadenopathy CHEST: Clear to auscultation. No respiratory distress. HEART: Regular rate and rhythm. ABDOMEN: Soft, nontender upon palpation, nondistended, normal active bowel sounds, no palpable or pulsatile masses, no guarding. No CVA tenderness SKIN: Warm, dry, no rash. NEURO: Alert and oriented x3. PSYCH: Normal mood and affect Course Course Emergency Course: Discussed treatment for likely. No use infection pending urine culture. Will prescribe antibiotic if needed per culture Patient is aware of diagnosis, understands and agrees to treatment plan. Anticipatory guidance given. Patient agrees to follow-up as directed and is aware of reasons to seek care at the emergency department. Portions of this record may have been created with voice recognition software Level of Care: Express Care Visit Vital Signs Vital signs: Reviewed. MDM - Female Genitourinary MDM Narrative Medical decision making narrative: Exam findings and UA show no acute concerns or changes; patient is non-toxic appearing and is in no distress. Patient is appropriate for outpatient treatment and follow-up. Differential Diagnosis Differential diagnosis: Likely urinary tract infection and cystitis Critical Care Time Critical Care Time Critical Care Time: No Discharge Plan Discharge Clinical Impression: Vaginal burning Patient Disposition: Home, Self-Care Condition: Stable Instructions: Yeast Infection (ED) Additional Instructions: We will send a urine culture to the lab; if the culture identifies an organism that requires antibiotics, you will receive a phone call from an urgent care staff member and an appropriate antibiotic will be prescribed. Take Diflucan as prescribed -yeast infection treatment can take up to 7 days to fully work -Follow-up with your primary care provider if needed. Seek ER visit if condition worsens
[2022-10-02 18:40] VITALS: BP 100/69; PULSE 77; RESP 16; TEMP 36.7; O2SAT 100
== END 2022-10-02 19:00 | disposition home or self-care (01) ==
PROVIDERS: Emergency Provider Nurse Practitioner
DX: R10.2 Pelvic and perineal pain (principal)
CPT/HCPCS: 81003; 87086; 99213; G0463

== ENCOUNTER 2023-02-16 09:59 | Emergency (ER) | payer OTHER, SELFPAY ==
[2023-02-16 10:07] VITALS: BP 106/65; PULSE 63; RESP 16; TEMP 36.8; O2SAT 100
--- NOTE | 2023-02-16 10:18 | ED.SKABFB ---
HPI - Skin/Abscess/Foreign Bdy General Chief complaint: Skin/Abscess/Foreign Body Stated complaint: Rash Time Seen by Provider: 02/16/23 10:19 Source: patient Mode of arrival: ambulatory Limitations: no limitations History of Present Illness HPI narrative: 28 y/o female presented for c/o rash to right face, neck,and right thigh since yesterday. Took 3 benadryl which has improved the appearance. States rash is itchy, burning and throbbing at times; when she scratches it becomes inflamed. Rates pain/irritation 01/25. No vesicles reported. Denies lip, tongue, or throat swelling, shortness of breath or wheezing. Denies changes to soap, detergent, lotion, or any other exposures. No one else in the house or any contacts with similar symptoms. Related Data Allergies Allergy/AdvReac Type Severity Reaction Status Date / Time No Known Allergies Allergy Verified 02/16/23 10:04 Review of Systems Review of Systems: CONSTITUTIONAL: Denies body aches, fever, chills, or sweats. EYES: Denies visual changes, redness, or discharge. ENT: Denies rhinorrhea, congestion CARDIOVASCULAR: Denies chest pain, palpitations, or edema. RESPIRATORY: Denies cough or dyspnea. GASTROINTESTINAL: Denies abdominal pain, nausea, vomiting, or diarrhea. SKIN: Reports rash MUSCULOSKELETAL: Denies back pain, joint pain, or myalgia. NEUROLOGIC: Denies headache, numbness, tingling, or weakness. [facility] Past Medical History Medical History Abnormal uterine bleeding Anxiety Depression Endometriosis Social History Social History Smoking status: Never smoker Living arrangements: with family Gender identity (if verbalized by the patient): Female Spiritual care concerns: No Comments At time of signature, I have reviewed and agree with nursing past medical, surgical, social and family history unless otherwise noted. Please see nursing chart for further information. There is no relevant family history pertinent to the presenting complaint Exam Narrative: GENERAL: Well-appearing HEAD: Normocephalic, atraumatic. EYES: conjunctivae clear, and EOMI. ENT: Mucous membranes moist. Oropharynx without edema, erythema or lesions. NECK: Supple. No lymphadenopathy CHEST: Clear to auscultation. HEART: Regular rate and rhythm. SKIN: Warm, dry. faint outline of urticaria to right cheek and right forearm, no induration fluctuance, or tenderness NEURO: Alert and oriented x3. Course Course Emergency Course: Patient is aware of diagnosis, understands and agrees to treatment plan. Anticipatory guidance given. Patient agrees to follow-up as directed and is aware of reasons to seek care at the emergency department. Portions of this record may have been created with voice recognition software Level of Care: Express Care Visit Vital Signs Vital signs: Vital Signs Temperature 98.2 F 02/16/23 10:07 Pulse Rate 63 02/16/23 10:07 Respiratory Rate 16 02/16/23 10:07 Blood Pressure 106/65 02/16/23 10:07 Pulse Oximetry 100 02/16/23 10:07 Oxygen Delivery Room Air 02/16/23 10:07 Temperature 98.2 F 02/16/23 10:07 Pulse Rate 63 02/16/23 10:07 Respiratory Rate 16 02/16/23 10:07 Blood Pressure 106/65 02/16/23 10:07 Pulse Oximetry 100 02/16/23 10:07 Oxygen Delivery Room Air 02/16/23 10:07 Reviewed MDM - Skin/Abscess/Foreign Bdy MDM Narrative Medical decision making narrative: Discussed physical exam findings. Advised supportive measures and signs/symptoms to go to the ER. Pt is appropriate for outpt treatment and f/u. Differential Diagnosis Differential diagnosis: Likely abscess of skin or subcutaneous tissue, urticaria, herpes zoster, cellulitis and contact dermatitis Discharge Plan Discharge Clinical Impression: Contact dermatitis Patient Disposition: Home, Self-Care Condition: Stable I
== END 2023-02-16 10:36 | disposition home or self-care (01) ==
PROVIDERS: Emergency Provider Nurse Practitioner Family
DX: L25.9 Unspecified contact dermatitis, unspecified cause (principal); N80.9 Endometriosis, unspecified
CPT/HCPCS: 99213; G0463

== ENCOUNTER 2023-09-08 11:38 | Emergency (ER) | payer OTHER, SELFPAY ==
[2023-09-08 11:51] VITALS: BP 127/62; PULSE 89; RESP 16; TEMP 37.1; O2SAT 100
--- NOTE | 2023-09-08 11:56 | ED.GENADULT ---
HPI - General Adult General Chief complaint: Upper Respiratory Infection Stated complaint: Sore Throat/Ears Irritation Source: patient, RN notes reviewed and old records reviewed Mode of arrival: ambulatory Limitations: no limitations History of Present Illness HPI narrative: 20-year-old female presents to [facility] with complaints of cough, congestion, myalgia, fatigue, headache, bilateral ear pressure this started yesterday. Patient taking Tylenol for symptoms. Related Data Home Medications Medication Instructions Recorded Confirmed No Home Medications 09/08/23 09/08/23 Allergies Allergy/AdvReac Type Severity Reaction Status Date / Time No Known Allergies Allergy Verified 09/08/23 11:54 Review of Systems Constitutional: Constitutional: Reports no additional constitutional complaints, Reports body ache(s), Denies chills, Reports fatigue, Denies fever(s) and Reports headache(s) Eyes: Eyes: Reports no additional eye complaints and Denies blurry vision ENT: Reports system reviewed and no additional complaints, except as documented, Denies vertigo, Denies dizziness, Denies ear discharge, Reports otalgia, Denies facial pain, Denies headache(s), Reports nasal congestion, Denies nasal discharge, Denies sinus pain, Reports sinus pressure and Denies sore throat Cardiovascular: Cardiovascular: Reports no additional cardiovascular complaints, Denies chest pain, Denies chest pain at rest, Denies rapid heart rate and Denies dyspnea Respiratory: Respiratory: Reports no additional respiratory complaints, Reports chest congestion, Reports cough, Denies pain on inspiration, Denies pain with cough and Denies dyspnea Gastrointestinal: Gastrointestinal: Denies abdominal pain, Denies diarrhea, Denies nausea and Denies vomiting Integumentary/Breasts: Skin/Breast: Denies rash Neurologic: Reports system reviewed and no additional complaints, except as documented, Denies vertigo, Denies dizziness and Denies headache(s) Endocrine: Endocrine: Denies fatigue PMFSH Past Medical History Medical History Abnormal uterine bleeding Anxiety Depression Endometriosis Social History Social History Smoking status: Never smoker Living arrangements: with family Gender identity (if verbalized by the patient): Female Spiritual care concerns: No Comments At the time of my signature, I reviewed and agree with the nursing past medical, surgical, social, and family history. There is no relevant family history pertinent to the patient complaint. Exam Const: General: cooperative, healthy appearing, no acute distress and well nourished Nutritional Appearance: well nourished Orientation/consciousness: patient oriented x3 Limitations: no limitations HENMT: Head: normal to inspection and normocephalic Ears: external ears normal, TM's normal bilaterally, EAC's normal and mastoids normal Face/Nose/Sinus: normal facial exam Face and sinus: normal facial exam Mouth: Yes Normal oral and palatal mucosa present, Yes oropharynx normal and Yes moist mucous membranes Throat: posterior oropharynx normal, tonsils normal, uvula midline and no uvular edema Eyes: General: appearance normal, both eyes and all related structures Sclera: sclerae normal Pupils: Equal, round and reactive pupils present Resp: Effort & Inspection: normal respiratory effort, able to speak in complete sentences, no audible wheezes, no cough, no respiratory distress and no retractions Auscultation: clear to auscultation bilaterally, no crackles, no rales, no rhonchi and no wheezes Cardio: Rate: regular rate Rhythm: regular rhythm Skin: General skin exam: normal color and no rashes or lesions noted Neuro: General: patient oriented x3 Cranial nerves: Yes Equal, round and reactive pupils present Psych: Appearance: grossly normal Mental Status: mental status grossly
== END 2023-09-08 12:30 | disposition home or self-care (01) ==
PROVIDERS: Emergency Provider Registered Nurse
DX: U07.1 COVID-19 (principal); N80.9 Endometriosis, unspecified
CPT/HCPCS: 87081; 87426; 87804; 87880; 99213; G0463

== ENCOUNTER 2023-09-27 19:13 | Emergency (ER) | payer OTHER, SELFPAY ==
[2023-09-27 19:28] VITALS: BP 98/77; PULSE 70; RESP 16; TEMP 37; O2SAT 98
--- NOTE | 2023-09-27 20:06 | ED.URI ---
HPI - URI/Sore Throat General Chief Complaint: Upper Respiratory Infection Stated Complaint: Sore Throat Source: patient, RN notes reviewed and old records reviewed Mode of arrival: ambulatory Limitations: no limitations History of Present Illness HPI Narrative: 28-year-old female to Express Care for complaint of right ear pain x2 days. Patient endorses that she had COVID 2 weeks ago. Patient denies cough, headache, sore throat, or allergies. Patient able to tolerate fluids by mouth Related Data Home Medications Medication Instructions Recorded Confirmed No Home Medications 09/08/23 09/27/23 Allergies Allergy/AdvReac Type Severity Reaction Status Date / Time No Known Allergies Allergy Verified 09/27/23 19:43 Review of Systems Review of Systems: All systems reviewed & are unremarkable except as noted in HPI and below Constitutional: Constitutional: Reports no additional constitutional complaints Eyes: Eyes: Reports no additional eye complaints ENT: Reports otalgia ( right), Denies headache(s) and Denies sore throat Cardiovascular: Cardiovascular: Reports no additional cardiovascular complaints, Denies chest pain and Denies dyspnea Respiratory: Respiratory: Reports no additional respiratory complaints, Denies cough and Denies dyspnea Musculoskeletal: Musculoskeletal: Reports no additional musculoskeletal complaints Neurologic: Reports system reviewed and no additional complaints, except as documented Psychiatric: Psychiatric: Reports no additional psychiatric complaints PMFSH Past Medical History Medical History Abnormal uterine bleeding Anxiety Depression Endometriosis Social History Social History Smoking status: Never smoker Living arrangements: with family Gender identity (if verbalized by the patient): Female Spiritual care concerns: No Comments At the time of my signature, I reviewed and agree with the nursing past medical, surgical, social, and family history. There is no relevant family history pertinent to the patient complaint. Exam Const: General: cooperative, healthy appearing, comfortable, no acute distress, alert and well nourished Nutritional Appearance: well nourished Orientation/consciousness: patient oriented x3 Limitations: no limitations HENMT: Head: normal to inspection Ears: external ears normal Face/Nose/Sinus: Normal external nose present, Normal nares present, normal facial exam, No erythema and No edema Face and sinus: normal facial exam, no erythema and no edema Mouth: Yes Normal oral and palatal mucosa present Eyes: General: appearance normal, both eyes and all related structures Neck: Neck: normal visual inspection, full ROM and no meningeal signs Lymphatic: no lymphadenopathy noted and no lymphedema noted Chest: Chest palpation & inspection: normal inspection of the chest Resp: Effort & Inspection: normal respiratory effort and able to speak in complete sentences Auscultation: clear to auscultation bilaterally Cardio: Jugular venous distension: no JVD Rate: regular rate Rhythm: regular rhythm Back/Spine/Pelvis: Cervical Spine: cervical ROM normal Skin: General skin exam: normal color, no rashes or lesions noted and turgor normal Neuro: General: patient oriented x3, gait normal, moves all extremities and no meningeal signs Speech: normal speech Gait exam (Neuro): Normal gait present Extrem: General: normal to inspection, full ROM and capillary refill normal Psych: Appearance: grossly normal and well kempt Course Course Emergency Course: Some parts of this dictation were generated by voice recognition software and may contain typographical and/or grammatical inaccuracies. Level of Care: Express Care Visit Vital Signs Vital signs: Vital Signs Temperature 37.0 C 09/27/23 19:28 Pulse Rate 70 09/27/23 19:28 Res
== END 2023-09-27 20:13 | disposition home or self-care (01) ==
PROVIDERS: Emergency Provider Nurse Practitioner Family
DX: J06.9 Acute upper respiratory infection, unspecified (principal); N80.9 Endometriosis, unspecified
CPT/HCPCS: 87081; 87804; 87880; 99213; G0463

== ENCOUNTER 2023-11-03 12:10 | Emergency (ER) | payer OTHER, SELFPAY ==
[2023-11-03 12:24] VITALS: BP 105/59; PULSE 74; RESP 16; TEMP 36.7; O2SAT 100
--- NOTE | 2023-11-03 14:46 | ED.URI ---
HPI - URI/Sore Throat General Chief Complaint: Upper Respiratory Infection Stated Complaint: Sore Throat Time Seen by Provider: 11/03/23 13:01 Source: patient and RN notes reviewed Mode of arrival: ambulatory Limitations: no limitations History of Present Illness HPI Narrative: Patient presents today complaining of 3 day history of right ear pain, sore throat, subjective fever and chills. Currently rates her pain 7/10 and has been taking [id number] medication without much relief. Related Data Home Medications Medication Instructions Recorded Confirmed No Home Medications 09/08/23 11/03/23 Allergies Allergy/AdvReac Type Severity Reaction Status Date / Time No Known Allergies Allergy Verified 11/03/23 12:19 Review of Systems Review of Systems: CONSTITUTIONAL: Denies body aches, or sweats.+ subjective fever, chills EYES: Denies visual changes, redness, or discharge. ENT: Denies rhinorrhea, congestion. + sore throat, right ear pain CARDIOVASCULAR: Denies chest pain, palpitations, or edema. RESPIRATORY: Denies cough or dyspnea. GASTROINTESTINAL: Denies abdominal pain, nausea, vomiting, or diarrhea. GENITOURINARY: Denies dysuria or hematuria. SKIN: Denies rash, itching, or wounds. MUSCULOSKELETAL: Denies back pain, joint pain, or myalgia. NEUROLOGIC: Denies headache, numbness, tingling, or weakness. PSYCH: Denies depression or anxiety. PMFSH Past Medical History Medical History Abnormal uterine bleeding Anxiety Depression Endometriosis Social History Social History Smoking status: Never smoker Living arrangements: with family Gender identity (if verbalized by the patient): Female Spiritual care concerns: No Comments At time of signature, I have reviewed and agree with nursing past medical, surgical, social and family history unless otherwise noted. Please see nursing chart for further information. There is no relevant family history pertinent to the presenting complaint Exam Narrative: GENERAL: Well-appearing, well-nourished, and in no acute distress. HEAD: Normocephalic, atraumatic. EYES: EOMI. No redness or drainage. Conjunctivae normal. ENT: Mucous membranes pink and moist. Nares clear. No rhinorrhea. TMs normal bilaterally. Throat normal. Uvula midline. NECK: Normal AROM. Supple. No lymphadenopathy. CHEST: No respiratory distress. Clear to auscultation. HEART: Regular rate and rhythm. No murmur appreciated. EXTREMITIES: Normal range of motion. No edema. SKIN: Warm, dry, no rash. Capillary refill normal. Normal skin turgor. NEURO: No focal deficits. Alert and oriented x3. Gait steady. PSYCH: Normal affect. No signs of depression or anxiety. Course Course Level of Care: Express Care Visit Vital Signs Vital signs: Vital Signs Temperature 98.1 F 11/03/23 12:24 Pulse Rate 74 11/03/23 12:24 Respiratory Rate 16 11/03/23 12:24 Blood Pressure 105/59 L 11/03/23 12:24 Pulse Oximetry 100 11/03/23 12:24 Oxygen Delivery Room Air 11/03/23 12:24 Temperature 98.1 F 11/03/23 12:24 Pulse Rate 74 11/03/23 12:24 Respiratory Rate 16 11/03/23 12:24 Blood Pressure 105/59 L 11/03/23 12:24 Pulse Oximetry 100 11/03/23 12:24 Oxygen Delivery Room Air 11/03/23 12:24 Reviewed MDM - URI/Sore Throat MDM Narrative Medical decision making narrative: Rapid strep negative. Culture pending. Symptoms likely viral in etiology. Discussed [id number] medication use and duration of illness. Anticipatory guidance given. No prescription medications indicated at this time. Differential Diagnosis Differential diagnosis: Likely upper respiratory infection, otitis media, viral infection, pharyngitis and other (Strep throat) Lab Data Attestation: I reviewed the patient's lab results. Labs: Strep Screen Pr
== END 2023-11-03 13:20 | disposition home or self-care (01) ==
PROVIDERS: Emergency Provider Nurse Practitioner
DX: J06.9 Acute upper respiratory infection, unspecified (principal); N80.9 Endometriosis, unspecified
CPT/HCPCS: 87081; 87880; 99213; G0463

== ENCOUNTER 2024-02-15 11:49 | Emergency (ER) | payer OTHER, SELFPAY ==
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
[2024-02-15 11:53] VITALS: BP 135/82; PULSE 75; RESP 18; TEMP 36.9; O2SAT 100
--- NOTE | 2024-02-15 12:12 | PC.NURSE ---
Pt reports taking tylenol around 0900
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
[2024-02-15 12:56] LABS: BEDSIDEPREGUCG Negative
[2024-02-15 13:07] LABS: Estimated CRCL calculation 106 ml/min; Estimated Glomerular Filt Rate > 60
[2024-02-15 13:16] LABS: Appearance Urine Cloudy (Clear); Bacteria Urine 4+ /hpf; Bilirubin Urine Negative (Negative); Blood Urine Negative (Negative); Color Urine Yellow (Yellow); Glucose Urine UA Negative (Negative); Ketones Urine Negative (Negative); Leukocyte Esterase Ur 3+ LEU/UL (Negative); Need Manual Microscopic Reviewed; Nitrate Urine Negative (Negative); Protein Urine Negative (Negative); RBC Urine 0-2 /hpf (0-2); Specific Grav Ur 1.008 (1.001-1.035); Squamous Epithelial Cell Urine Many /hpf (Few); Urobilinogen Urine 0.2 mg/dL (<2.0); WBC Urine 51-100 /hpf (0-3); pH Urine 6.5 (5.0-9.0)
[2024-02-15 13:17] LABS: Add Urine Microscopic? YES
[2024-02-15] MEDS: KETOROLAC 30 MG/ML VIAL (*BKC) IV PUSH (13:44)
[2024-02-15 13:57] VITALS: BP 116/78; PULSE 66; RESP 17; O2SAT 100
== END 2024-02-15 13:58 | disposition home or self-care (01) ==
PROVIDERS: Emergency Provider Physician Assistant
DX: S16.1XXA Strain of muscle, fascia and tendon at neck level, initial encounter (principal); S39.012A Strain of muscle, fascia and tendon of lower back, initial encounter; N30.00 Acute cystitis without hematuria; N80.9 Endometriosis, unspecified; V49.40XA Driver injured in collision with unspecified motor vehicles in traffic accident, initial encounter
CPT/HCPCS: 70450; 71260; 72125; 74177; 81001; 81025; 87086; 96374; 99284; J1885; L0140; Q9967

== ENCOUNTER 2024-02-21 18:38 | Emergency (ER) | payer OTHER, SELFPAY ==
[2024-02-21 18:45] VITALS: BP 107/70; PULSE 66; RESP 16; TEMP 37.1; O2SAT 100
--- NOTE | 2024-02-21 19:12 | ED.SKABFB ---
HPI - Skin/Abscess/Foreign Bdy General Chief complaint: Skin/Abscess/Foreign Body Stated complaint: legs hurt,ankles swollen,dry mouth Time Seen by Provider: 02/21/24 18:59 Source: patient and RN notes reviewed Mode of arrival: ambulatory Limitations: no limitations History of Present Illness HPI narrative: Patient presents today complaining of a sunburn to the bilateral anterior legs. She was on a flu trip 2 days ago and got very burnt. Today she noted some swelling in her ankles. She has tried topical aloe vera, ibuprofen, and topical pickle juice. Related Data Allergies Allergy/AdvReac Type Severity Reaction Status Date / Time No Known Allergies Allergy Verified 02/15/24 11:50 Review of Systems Review of Systems: CONSTITUTIONAL: Denies body aches, fever, chills, or sweats. EYES: Denies visual changes, redness, or discharge. ENT: Denies rhinorrhea, congestion, sore throat, or otalgia. CARDIOVASCULAR: Denies chest pain, palpitations, or edema. RESPIRATORY: Denies cough or dyspnea. GASTROINTESTINAL: Denies abdominal pain, nausea, vomiting, or diarrhea. GENITOURINARY: Denies dysuria or hematuria. SKIN: Denies rash, itching, or wounds. +sunburn MUSCULOSKELETAL: Denies back pain, joint pain, or myalgia. NEUROLOGIC: Denies headache, numbness, tingling, or weakness. PSYCH: Denies depression or anxiety. [facility] Past Medical History Medical History Abnormal uterine bleeding Anxiety Depression Endometriosis Social History Social History Smoking status: Never smoker Living arrangements: with family Gender identity (if verbalized by the patient): Female Spiritual care concerns: No Comments At time of signature, I have reviewed and agree with nursing past medical, surgical, social and family history unless otherwise noted. Please see nursing chart for further information. There is no relevant family history pertinent to the presenting complaint Exam Narrative: GENERAL: Well-appearing, well-nourished, and in no acute distress. HEAD: Normocephalic, atraumatic. EYES: EOMI. No redness or drainage. Conjunctivae normal. ENT: Mucous membranes pink and moist. NECK: Normal AROM. CHEST: No respiratory distress. EXTREMITIES: Normal range of motion. No edema. SKIN: Warm, dry, no rash. Capillary refill normal. Normal skin turgor. First degree sunburn to the anterior upper and lower legs with 1+ edema to the ankles. Distal sensation intact bilaterally. Capillary refill normal. Pedal pulses normal. No blistering noted. NEURO: No focal deficits. Alert and oriented x3. Gait steady. PSYCH: Normal affect. No signs of depression or anxiety. Course Course Level of Care: Express Care Visit Vital Signs Vital signs: Vital Signs Temperature 98.7 F 02/21/24 18:45 Pulse Rate 66 02/21/24 18:45 Respiratory Rate 16 02/21/24 18:45 Blood Pressure 107/70 02/21/24 18:45 Pulse Oximetry 100 02/21/24 18:45 Oxygen Delivery Room Air 02/21/24 18:45 Temperature 98.7 F 02/21/24 18:45 Pulse Rate 66 02/21/24 18:45 Respiratory Rate 16 02/21/24 18:45 Blood Pressure 107/70 02/21/24 18:45 Pulse Oximetry 100 02/21/24 18:45 Oxygen Delivery Room Air 02/21/24 18:45 Reviewed MDM - Skin/Abscess/Foreign Bdy MDM Narrative Medical decision making narrative: Reassured patient that her sunburn and swelling will resolve with time. Discussed using NSAIDs, cool compresses, and topical treatments. No prescription medications indicated at this time. Anticipatory guidance given. Differential Diagnosis Differential diagnosis: Likely cellulitis and other (Sunburn) Critical Care Time Critical Care Time Critical Care Time: No Discharge Plan Discharge Clinical Impression: 1st degree sunburn Patient Disposition: Home, Self-Care Condition: Stable Instructions:
== END 2024-02-21 19:18 | disposition home or self-care (01) ==
PROVIDERS: Emergency Provider Nurse Practitioner
DX: L55.0 Sunburn of first degree (principal); N80.9 Endometriosis, unspecified
CPT/HCPCS: 99211; G0463

== ENCOUNTER 2024-03-16 16:59 | Emergency (ER) | payer OTHER, SELFPAY ==
[2024-03-16 17:16] VITALS: BP 115/67; PULSE 68; RESP 15; TEMP 36.7; O2SAT 100
--- NOTE | 2024-03-16 17:55 | ED.URI ---
HPI - URI/Sore Throat General Chief Complaint: Upper Respiratory Infection Stated Complaint: congested,bodyaches,runny nose Time Seen by Provider: 03/16/24 17:55 Source: patient, RN notes reviewed and old records reviewed Mode of arrival: ambulatory Limitations: no limitations History of Present Illness HPI Narrative: Patient presents with 2 day history of runny nose, body aches, fever. Patient reports that symptoms are tolerable with use of Tylenol and ibuprofen. Patient does have a special needs child at home, that is why she is here today. She is requesting testing for COVID, flu, strep. She is not in any distress. She denies any other complaints. Related Data Home Medications Medication Instructions Recorded Confirmed No Home Medications 03/16/24 03/16/24 Allergies Allergy/AdvReac Type Severity Reaction Status Date / Time No Known Allergies Allergy Verified 03/16/24 17:20 Review of Systems Review of Systems: All systems reviewed & are unremarkable except as noted in HPI and below Constitutional: Constitutional: Reports no additional constitutional complaints, Reports body ache(s), Reports chills and Reports fever(s) ENT: Reports system reviewed and no additional complaints, except as documented, Reports as per HPI, Reports headache(s), Reports nasal discharge and Reports sore throat Cardiovascular: Cardiovascular: Reports no additional cardiovascular complaints Respiratory: Respiratory: Reports no additional respiratory complaints and Reports cough Gastrointestinal: Gastrointestinal: Reports no additional gastrointestinal complaints PMFSH Past Medical History Medical History Abnormal uterine bleeding Anxiety Depression Endometriosis Social History Social History Smoking status: Never smoker Living arrangements: with family Gender identity (if verbalized by the patient): Female Spiritual care concerns: No Exam Const: General: cooperative, no acute distress, alert and awake Orientation/consciousness: oriented to person, oriented to place and oriented to time HENMT: Head: normal to inspection Ears: TM's normal bilaterally Face/Nose/Sinus: Nasal discharge present clear Resp: Effort & Inspection: normal respiratory effort and able to speak in complete sentences Auscultation: clear to auscultation bilaterally, no crackles, no rales, no rhonchi and no wheezes Cardio: Palpation: normal PMI Rate: regular rate Rhythm: regular rhythm Heart sounds: S1 normal heart sound present and S2 normal heart sound present Neuro: General: oriented to person, oriented to place and oriented to time Cranial nerves: Yes CN's II-XII intact bilaterally Psych: Appearance: grossly normal Thought process: Normal thought process present Insight: Good insight present (Psych) Judgement: Good judgement present (Psych) Course Course Level of Care: Express Care Visit Vital Signs Vital signs: Vital Signs Temperature 98.1 F 03/16/24 17:16 Pulse Rate 68 03/16/24 17:16 Respiratory Rate 15 03/16/24 17:16 Blood Pressure 115/67 03/16/24 17:16 Pulse Oximetry 100 03/16/24 17:16 Oxygen Delivery Room Air 03/16/24 17:16 Temperature 98.1 F 03/16/24 17:16 Pulse Rate 68 03/16/24 17:16 Respiratory Rate 15 03/16/24 17:16 Blood Pressure 115/67 03/16/24 17:16 Pulse Oximetry 100 03/16/24 17:16 Oxygen Delivery Room Air 03/16/24 17:17 MDM - URI/Sore Throat MDM Narrative Medical decision making narrative: Patient with URI symptoms, concern because of special needs child at home. Negative for flu, COVID, strep. Able to manage symptoms well with [id number] remedies. Discussed good handwashing and other infection control measures with patient. Continue with supportive care measures at home. Follow up with primary care provider, emergency department for
[2024-03-16 18:09] LABS: EDINFLUASCREEN Negative; EDINFLUBSCREEN Negative; EDSTREPNEGPOS1 Negative
== END 2024-03-16 18:05 | disposition home or self-care (01) ==
PROVIDERS: Emergency Provider Nurse Practitioner Family
DX: J06.9 Acute upper respiratory infection, unspecified (principal); Z20.822 Contact with and (suspected) exposure to COVID-19; N80.9 Endometriosis, unspecified
CPT/HCPCS: 87426; 87804; 87880; 99213; G0463

== ENCOUNTER 2024-08-23 17:29 | Emergency (ER) | payer OTHER, SELFPAY ==
--- NOTE | 2024-08-23 17:36 | ED.EAR ---
HPI - Ear Problem General Chief complaint: Ear Stated complaint: Ears Irritation Time Seen by Provider: 08/23/24 18:24 Source: patient and RN notes reviewed Mode of arrival: ambulatory Limitations: no limitations History of Present Illness HPI Narrative: 29-year-old female presents concern for fever, body aches, sore throat ear pain that started 3 days ago. She reports she has been taking Mucinex. MD Complaint: ear pain Related Data Allergies Allergy/AdvReac Type Severity Reaction Status Date / Time No Known Allergies Allergy Verified 08/23/24 17:34 Review of Systems Review of Systems: CONSTITUTIONAL: Reports malaise, fever. EYES: Denies visual changes, redness, or discharge. ENT: Reports rhinorrhea, congestion, sore throat, bilateral ear pain CARDIOVASCULAR: Denies chest pain, palpitations, or edema. RESPIRATORY: Denies cough. Denies dyspnea. GASTROINTESTINAL: Denies abdominal pain, nausea, vomiting, diarrhea SKIN: Denies rash or itching. MUSCULOSKELETAL: Reports myalgia. NEUROLOGIC: Reports headache. All systems reviewed & are unremarkable except as noted in HPI and below PMFSH Past Medical History Medical History Abnormal uterine bleeding Anxiety Depression Endometriosis Social History Social History Smoking status: Never smoker Living arrangements: with family Gender identity (if verbalized by the patient): Female Spiritual care concerns: No Comments At time of signature, agree with nursing past medical, surgical, social and family history. There is no relevant family history pertinent to the presenting complaint Exam Narrative: GENERAL: Nontoxic-appearing, well-nourished, and in no acute distress. HEAD: Normocephalic EYES: PERRLA, conjunctivae clear ENT: Nares clear. Mucous membranes moist. TM pearly benito with dull light reflex bilaterally; no tragal tenderness. Oropharynx erythematous without lesions. Tonsils not enlarged and without exudate, no drooling, no hoarseness, no trismus, uvula midline. NECK: Supple. No lymphadenopathy CHEST: Clear to auscultation, breath sounds equal. No wheezing, rhonchi, rales, or stridor. No respiratory distress, speaks in full sentences. HEART: Regular rate and rhythm. No murmur heard. SKIN: Warm, dry, no rash. NEURO: Alert and oriented x3. PSYCH: Normal mood and affect Course Course Emergency Course: Patient is aware of diagnosis, understands and agrees to treatment plan. Anticipatory guidance given. Patient agrees to follow-up as directed and is aware of reasons to seek care at the emergency department. Portions of this record may have been created with voice recognition software Level of Care: [facility] Visit Vital Signs Vital signs: Vital Signs Temperature 98.6 F 08/23/24 17:37 Pulse Rate 93 08/23/24 17:37 Respiratory Rate 20 08/23/24 17:37 Blood Pressure 107/68 08/23/24 17:37 Pulse Oximetry 99 08/23/24 17:37 Oxygen Delivery Room Air 08/23/24 17:37 Temperature 98.6 F 08/23/24 17:37 Pulse Rate 93 08/23/24 17:37 Respiratory Rate 20 08/23/24 17:37 Blood Pressure 107/68 08/23/24 17:37 Pulse Oximetry 99 08/23/24 17:37 Oxygen Delivery Room Air 08/23/24 17:37 Reviewed. Medical Decision Making MDM Narrative Medical decision making narrative: I evaluated this in the [facility]. History is obtained from patient who is an independent historian and physical exam was performed.? Available medical records were reviewed. ? Exam findings and relevant testing show no acute concerns or changes; patient is non-toxic appearing and is in no distress. Differential diagnosis considered: Gann virus, strep pharyngitis, allergic rhinitis, upper respiratory tract infection, sinusitis, rhinosinusitis, nasopharyngitis. viral pharyngitis, otitis media, otitis externa, otitis effusion, cerumen impaction, foreign body. Exam findings show no acute concerns or changes; patient is non-toxic appearing and is in no distress. Patient is appropriate for outpatient treatment and follow-up. ? Differential diagnosis and treatment plan were discussed with the patient. Patient agrees with discussion and after shared medical decision making agrees with plan of care. All questions were answered to the patient's satisfaction. Patient is appropriate for outpatient treatment and follow-up. Vital Signs Vital Signs: Vital Signs Temperature 98.6 F 08/23/24 17:37 Pulse Rate 93 08/23/24 17:37 Respiratory Rate 20 08/23/24 17:37 Blood Pressure 107/68 02/05/25 17:37 Pulse Oximetry 99 08/23/24 17:37 Oxygen Delivery Room Air 08/23/24 17:37 Temperature 98.6 F 08/23/24 17:37 Pulse Rate 93 08/23/24 17:37 Respiratory Rate 20 08/23/24 17:37 Blood Pressure 107/68 08/23/24 17:37 Pulse Oximetry 99 08/23/24 17:37 Oxygen Delivery Room Air 08/23/24 17:37 Critical Care Time Critical Care Time Critical Care Time: No Discharge Plan Discharge Clinical Impression: Influenza A Patient Disposition: Home, Self-Care Condition: Stable Instructions: Influenza (ED) Additional Instructions: -Take strict precautions to prevent the spread of your virus. Be diligent about covering your cough (even when you are alone) and washing your hands frequently. -You may contagious until you have been symptom and/or fever free for 24 hours without fever reducing medicine -Alternate Ibuprofen and Tylenol for pain and fever relief (per package directions) -Drink plenty of fluid - drink fluid with electrolytes such as Gatorade or other oral re-hydration solution. Avoid caffeine, which can make dehydration worse. -Get plenty of rest to help your body heal. -Use a cool mist humidifier for chest and nasal congestion. -Eat RAW honey or use cough drops to ease throat discomfort -Do not smoke or expose children to secondhand smoke -Wash your hands frequently. -Please follow-up with your primary care doctor in the next 1-2 days if your symptoms do not improve. -If you have any worsening of symptoms or any other concerns please go to the ED immediately. -Please take medications as prescribed and continue taking your home medications as usual. Patient Language: Tanz[place] Prescriptions: New pseudoephedrine HCl [12 Hour Decongestant] 120 mg tablet extended release 120 mg PO Q12H PRN (Reason: nasal congestion) Qty: 20 0RF Follow-up/Referrals: PHYSICIAN,SENIOR CORPORATE STRATEGY MANAGER [Primary Care Provider] - Stand Alone Forms: Work/School Release IP Time of Disposition: 18:42
[2024-08-23 17:37] VITALS: BP 107/68; PULSE 93; RESP 20; TEMP 37; O2SAT 99
[2024-08-23 18:41] LABS: EDSTREPNEGPOS1 Negative (Negative)
[2024-08-23 18:50] LABS: EDCOVIDSCREEN Negative (Negative); EDINFLUASCREEN Positive (Negative); EDINFLUBSCREEN Negative (Negative)
[2024-08-23 18:53] LABS: EDSTREPNEGPOS1 Negative (Negative)
== END 2024-08-23 18:58 | disposition home or self-care (01) ==
PROVIDERS: Emergency Provider Nurse Practitioner
DX: J10.1 Influenza due to other identified influenza virus with other respiratory manifestations (principal); Z20.822 Contact with and (suspected) exposure to COVID-19; N80.9 Endometriosis, unspecified
CPT/HCPCS: 87081; 87426; 87804; 87880; 99213; G0463